=== PATIENT | male | born 2000 | race Caucasian/White ===

== ENCOUNTER 2022-03-03 16:10 | Emergency (ER) | payer BC, MEDICAID, SELFPAY ==
--- NOTE | 2022-03-03 16:13 | XRR_ITS ---
PROCEDURE INFORMATION: Exam: XR Right Ankle Exam date and time: 03/03/2022 4:59 PM Age: 21 years old Clinical indication: Pain and injury or trauma; Fall; Sprain or strain; Ankle; Right; Additional info: Injury/pain TECHNIQUE: Imaging protocol: XR Right ankle. Views: 3 or more views. COMPARISON: CR (LOW EXM, ) 03/03/2022 4:57 PM FINDINGS: Bones/joints: Osseous structures are intact. Negative for fracture. Joint spaces are preserved. Soft tissues: Mild soft tissue swelling along the lateral ankle. XR/XR ankle RT min 3V* [id number] IMPRESSION: No acute findings.
[2022-03-03 16:40] VITALS: BP 132/69; PULSE 86; RESP 18; TEMP 36.8; O2SAT 99; BMI 23.0
--- NOTE | 2022-03-03 16:46 | ED_ITS ---
HPI - Extremity Injury (Lower) General: Chief Complaint: Extremity Injury, Lower Stated Complaint: right ankle injury, swelling Time Seen by Provider: 03/03/22 16:21 Source: patient Mode of arrival: wheelchair Limitations: no limitations History of Present Illness: Patient is a 21-year-old male who presents to ED today for evaluation of a right ankle and foot injury. Patient states he was playing basketball and jumped up to get the ball and when he came down he landed on the ankle wrong. He states since then he has noticed swelling and increasing pain to the lateral aspect. MD complaint: ankle injury and foot injury Onset (ago): hour(s) Injury: Right: ankle and foot Place: other (basketball court) Severity: moderate Relieving factors: immobilization Exacerbating factors: weight bearing, movement and palpation Context: direct blow and other (twisting) Associated symptoms: Reports inability to bear weight Other symptoms: none Review of Systems Musc: Reports: extremity pain (R foot), extremity swelling (R foot), joint pain (R ankle) and joint swelling (R ankle) Neuro: Denies: numbness in extremities or sensory changes Physical Exam Const: COMMON NORMALS: no acute distress, average body habitus, patient oriented x3, no limitations, healthy appearing, alert and well nourished GENERAL APPEARANCE: cooperative Extremity: GENERAL: Yes normal exam except as noted RIGHT LOWER EXTREMITY: Yes foot & digits (TTP/swelling R lateral ankle) Right ankle: Yes neurovascular exam (normal) and Yes foot & digits (swelling/tenderness to lateral foot around 5th metatarsal base) Neuro: COMMON NORMALS: patient oriented x3, moves all extremities, no focal motor deficits and no sensory deficits noted SENSORIUM/ORIENTATION: Yes alert Skin: COMMON NORMALS: no rashes or lesions noted GENERAL SKIN EXAM: no rashes or lesions noted TRAUMA: no lacerations or abrasions Course Vital Signs: Vital signs: Vital Signs Temperature 98.3 F 03/03/22 16:40 Pulse Rate 86 03/03/22 16:40 Respiratory Rate 18 03/03/22 16:40 Blood Pressure 132/69 03/03/22 16:40 Pulse Oximetry 99 03/03/22 16:40 MDM - Extremity Injury (Lower) Medical Decision Making XRs negative. Given EM wrap/crutches. Weight bearing as tolerated. RICE therapy discussed. Follow up with PCP in 1-2 weeks for continued pain. Lab Data Radiology Impressions Foot X-Ray 03/03/22 16:51 IMPRESSION: No acute fracture. Soft tissue findings as above. Discharge Plan Discharge Patient Disposition: Home Clinical Impression: Right ankle sprain Qualifiers: Encounter type: initial encounter Involved ligament of ankle: unspecified ligament Qualified Code(s): S93.401A - Sprain of unspecified ligament of right ankle, initial encounter Condition: Stable Discharge Orders: Discharge ED (Routine); Ordered 03/03/22 Ordered By: Shonna Andrade Referrals: Shelly Barajas MD [Primary Care Provider] - Patient Instructions: Ankle Sprain (ED), RICE Therapy Coding Level of Care Code ED Renewable Energy Engineer for Chg Fwd Exam Expanded Problem Focused
--- NOTE | 2022-03-03 16:51 | XRR_ITS ---
PROCEDURE INFORMATION: Exam: XR Right Foot Exam date and time: 03/03/2022 4:57 PM Age: 21 years old Clinical indication: Injury or trauma; Fall; Sprain or strain; Foot; Right; Additional info: Trauma/injury TECHNIQUE: Imaging protocol: XR Right foot. Views: 3 or more views. COMPARISON: No relevant prior studies available. FINDINGS: Bones/joints: No acute fracture or dislocation. Well preserved joint spaces. Soft tissues: Probable soft tissue swelling at the medial midfoot and malleolar regions. Correlation with ankle exam may be helpful. Other findings: Three nonweightbearing views submitted. XR/XR foot RT min 3V* [id number] IMPRESSION: No acute fracture. Soft tissue findings as above.
== END 2022-03-03 17:50 | disposition home or self-care (01) ==
PROVIDERS: Emergency Provider Physician Assistant; PCP Pediatrics Adolescent Medicine
DX: S93.401A Sprain of unspecified ligament of right ankle, initial encounter (principal); X50.1XXA Overexertion from prolonged static or awkward postures, initial encounter; Y93.67 Activity, basketball
CPT/HCPCS: 73610; 73630; 99283; E0114

== ENCOUNTER 2024-07-03 09:31 | Emergency (ER) | payer SELFPAY ==
[2024-07-03 10:34] VITALS: BP 146/78; PULSE 58; RESP 18; TEMP 36.6; O2SAT 100
--- NOTE | 2024-07-03 10:42 | XRR_ITS ---
PROCEDURE INFORMATION: Exam: XR Right Ribs with PA Chest Exam date and time: 07/03/2024 10:51 AM Age: 24 years old Clinical indication: Injury or trauma; Other: Fall off roof; Rib area; Blunt trauma (contusions or hematomas) TECHNIQUE: Imaging protocol: Radiologic exam of the right ribs with PA chest. Views: 3 views COMPARISON: No relevant prior studies available. FINDINGS: Lungs: Lungs are clear. Pleural spaces: There is no pleural effusion or pneumothorax. Heart/Mediastinum: Cardiomediastinal contours are unremarkable. Bones/joints: Bones are unremarkable. No visible rib fracture. Nondisplaced rib fractures may be radiographically occult. XR/XR ribs RT mn 3V w CXR1V [id number] IMPRESSION: No acute findings.
--- NOTE | 2024-07-03 10:45 | ED_ITS ---
HPI - Fall 2 General: Chief Complaint: Fall Stated Complaint: fell off roof Time Seen by Provider: 07/03/24 10:43 History of Present Illness: 24-year-old male presents emergency room 4 days ago he fell off of a roof while working. He fell approximately 7 feet he had hit something on his right side. States it is extremely tender to take a deep breath is severe pain right lateral ribs. He also has quite a bit of abdominal pain denies any vomiting or diarrhea pain is worse with movement. No dysuria urgency or frequency or hematuria. He did not strike his head no loss consciousness denies any other injuries. Associated symptoms-after fall: Reports abdominal pain and chest pain; Denies neck pain Review of Systems 2 Const: Denies: fever(s) or chills Card: Reports: chest pain Resp: Denies: dyspnea GI: Reports: abdominal pain and nausea; Denies: vomiting, hematemesis or coffee ground emesis : Denies: dysuria, urinary frequency or urinary urgency Musc: Denies: neck pain or back pain Skin/Breast: Denies: rash Physical Exam 2 Const: COMMON NORMALS: no acute distress GENERAL APPEARANCE: cooperative and comfortable ORIENTATION/CONSCIOUSNESS: Yes awake, Yes oriented to person, Yes oriented to place and Yes oriented to time HENMT: COMMON NORMALS: normocephalic, atraumatic and hearing grossly normal bilaterally HEAD & SCALP: normocephalic and atraumatic Chest: OTHER: Reproducible pain with palpation of the right axillary line no subcu crepitus no deformity of the chest wall Resp: COMMON NORMALS: normal respiratory effort, No retractions, No use of accessory muscles and clear to auscultation bilaterally AUSCULTATION: clear to auscultation bilaterally Cardio: COMMON NORMALS: regular rate, regular rhythm and No murmurs present (Cardio) RATE: regular rate RHYTHM: regular rhythm GI: COMMON NORMALS: No hepatosplenomegaly present AUSCULTATION: Yes normoactive bowel sounds PALPATION: Yes Tenderness to palpation present (GI), Yes Guarding due to palpation present (GI) and Yes No hepatosplenomegaly present Extremity: COMMON NORMALS: normal to inspection, capillary refill normal, no clubbing, cyanosis or edema, no calf tenderness and no pedal edema Neuro: SENSORIUM/ORIENTATION: Yes oriented to person, Yes oriented to place and Yes oriented to time Skin: COMMON NORMALS: no rashes or lesions noted GENERAL SKIN EXAM: no rashes or lesions noted Course 2 Vital Signs: Vital signs: Vital Signs Temperature 97.8 F 07/03/24 13:37 Pulse Rate 54 L 07/03/24 13:37 Respiratory Rate 16 07/03/24 13:37 Blood Pressure 131/79 07/03/24 13:37 Pulse Oximetry 100 07/03/24 13:37 Oxygen Delivery Me thod Room Air 07/03/24 13:00 MDM - Fall Medical Decision Making Multiple acute fractures CT scan. Will treat pain no evidence of home hemopneumothorax. Medical Records I reviewed the patient's medical records. Lab Data I reviewed the patient's lab results. 07/03/24 11:00 07/03/24 11:00 Radiology Impressions Ribs X-Ray 07/03/24 10:42 IMPRESSION: No acute findings. Chest/Abdomen/Pelvis CT 07/03/24 10:53 IMPRESSION: 1. No sign of significant intrathoracic injury. 2. Acute nondisplaced fractures of the right anterolateral 6th through 11th ribs near the costal margin. IMPRESSION: 1. No sign of significant traumatic injury in the abdomen or pelvis. 2. Incomplete horseshoe kidney. No obstruction or stones. Details above. Laboratory Results WBC 7.98 10^3/uL (3.29-11.43) 07/03/24 11:00 RBC 5.15 10^6/uL (3.85-5.65) 07/03/24 11:00 Hgb 15.60 g/dL (11.27-16.99) 07/03/24 11:00 Hct 46.1 % (37-53) 07/03/24 11:00 MCV 89.5 fl (82-101) 07/03/24 11:00 MCH 30.3 pg (27-33) 07/03/24 11:00 MCHC 33.8 g/dL (30-55) 07/03/24 11:00 RDW 12.2 % (12.1-15.1) 07/03/24 11:00 Plt Count 289 10^3/cmm (157-399) 07/03/24 11:00 MPV 9.5 fL (7.4-10.4) 07/03/24 11:00 Neut % (Auto) 60.7 % 07/03/24 11:00 Lymph % (Auto) 29.2 % 07/03/24 11:00 [place] % (Auto) 7.0 % 07/03/24 11:00 Eos % (Auto) 2.5 % 07/03/24 11:00 Baso % (Auto) 0.3 % 07/03/24 11:00 Neut # (Auto) 4.85 10^3/uL (1.8-7.7) 07/03/24 11:00 Lymph # (Auto) 2.3 10^3/uL (0.8-4.8) 07/03/24 11:00 [place] # (Auto) 0.6 10^3/uL (0.2-0.9) 07/03/24 11:00 Eos # (Auto) 0.2 10^3/uL (0.0-0.8) 07/03/24 11:00 Baso # (Auto) 0.0 10^3/uL (0.0-0.1) 07/03/24 11:00 Nucleated RBC % (auto) 0 % 07/03/24 11:00 Nucleated RBCs # 0.0 /100WBC 07/03/24 11:00 Sodium 140 mmol/L (136-145) 07/03/24 11:00 Potassium 4.3 mmol/L (3.5-5.1) 07/03/24 11:00 Chloride 104 mmol/L (98-107) 07/03/24 11:00 Carbon Dioxide 25 mmol/L (22-29) 07/03/24 11:00 Anion Gap 15.3 (5-19) 07/03/24 11:00 BUN 10 mg/dL (6-20) 07/03/24 11:00 Creatinine 0.9 mg/dL (0.7-1.2) 07/03/24 11:00 GFR Calculation 105.5 mL/min (90-130) 07/03/24 11:00 Glucose 101 mg/dL (65-115) 07/03/24 11:00 Calculated Osmolality 289 mOsm/kg (285-295) 07/03/24 11:00 Calcium 9.2 mg/dL (8.5-10.5) 07/03/24 11:00 Total Bilirubin 0.2 mg/dL (0.15-1.2) 07/03/24 11:00 AST 11 U/L (0-40) 07/03/24 11:00 ALT 9 U/L (0-41) 07/03/24 11:00 Alkaline Phosphatase 84 U/L (40-130) 07/03/24 11:00 Total Protein 7.1 g/dL (6.6-8.7) 07/03/24 11:00 Albumin 4.4 g/dL (3.5-5.2) 07/03/24 11:00 Globulin 2.7 g/dL (1.3-4.6) 07/03/24 11:00 Lipase 23 U/L (13-60) 07/03/24 11:00 Urine Color Yellow (Yellow) 07/03/24 11:15 Urine Appearance Clear (CLEAR) 07/03/24 11:15 Urine pH 8.0 (5-7) A 07/03/24 11:15 Ur Specific [place] 1.015 (1.005-1.030) 07/03/24 11:15 Urine Protein Negative (Negative) 07/03/24 11:15 Urine Glucose (UA) Negative (Normal) 07/03/24 11:15 Urine Ketones Negative (Negative) 07/03/24 11:15 Urine Blood Negative (Negative) 07/03/24 11:15 Urine Nitrate Negative (Negative) 07/03/24 11:15 Urine Bilirubin Negative (Negative) 07/03/24 11:15 Urine Urobilinogen 0.2 mg/dL (Negative) 07/03/24 11:15 Ur Leukocyte Esterase Negative (Negative) 07/03/24 11:15 Urine RBC 0-2 /hpf (0-2) 07/03/24 11:15 Urine WBC 0-5 /hpf (0-5) 07/03/24 11:15 Ur Squamous Epith Cells 0-5 /hpf (0-5) 07/03/24 11:15 Amorphous Sediment Not Reportable 07/03/24 11:15 Urine Bacteria None seen /hpf (NONE) 07/03/24 11:15 Hyaline Casts 0-4 /lpf H 07/03/24 11:15 Blood Type A Positive 07/03/24 11:00 Rho(D) Type Rh positive 07/03/24 11:00 Antibody Screen Negative 07/03/24 11:00 All radiology interpretation(s) finalized by discharge Discharge Plan Discharge Patient Disposition: Home Clinical Impression: Multiple fractures of ribs Condition: Stable Prescriptions: New hydrocodone-acetaminophen 5-325 mg tablet 1 tab PO Q6H PRN (Reason: pain) Qty: 20 0RF No Action No Known Home Medications Discharge Orders: Discharge ED (Routine); Ordered 07/03/24 Ordered By: Vasquez Maloney Referrals: Shelly Barajas MD [Primary Care Provider] - Discharge Diet: Usual diet Discharge Activity: Increase activity as tolerated Patient Instructions: Opioid Safety, Pain Management, Fractures - Rib Activity Restrictions/Additional Instructions: Thank you for choosing [facility] for your healthcare needs today. It is very important that you follow up as instructed or that you return to the Emergency Department should you have concerns or if your condition changes or worsens in any way. Stand Alone Forms: Work/School Release Coding Level of Care Code ED Catia Designer for Bree Kaba
--- NOTE | 2024-07-03 10:53 | CTR_ITS ---
PROCEDURE INFORMATION: Exam: CT Chest With Contrast; Diagnostic Exam date and time: 07/03/2024 11:49 AM Age: 24 years old Clinical indication: Injury or trauma; Fall; Generalized; Blunt trauma (contusions or hematomas) TECHNIQUE: Imaging protocol: Diagnostic computed tomography of the chest with contrast. Radiation optimization: All CT scans at this facility use at least one of these dose optimization techniques: automated exposure control; mA and/or kV adjustment per patient size (includes targeted exams where dose is matched to clinical indication); or iterative reconstruction. Contrast material: OMNI 350; Contrast volume: 100 ml; Contrast route: INTRAVENOUS (IV); COMPARISON: CR XR ribs RT mn 3V w CXR1V [id number] 07/03/2024 10:51 AM RADIATION DOSE METRICS: Total DLP (mGy-cm): 844.18 FINDINGS: Lungs: Lungs are clear. Pleural spaces: There is no pleural effusion or pneumothorax. Heart: Heart size is normal. There is no pericardial effusion. Lymph nodes: There is no mediastinal or hilar lymphadenopathy. Vasculature: The aorta is unremarkable. There is no aneurysm. Visible portions of the pulmonary arteries are unremarkable. Bones/joints: There are acute nondisplaced fractures of the anterior lateral right 6th through 11th ribs near the costal margin. There is mild asymmetric edema in the soft tissues of the inferolateral right chest wall associated with rib fractures. Soft tissues: No significant soft tissue hematoma. PROCEDURE INFORMATION: Exam: CT Abdomen And Pelvis With Contrast Exam date and time: 07/03/2024 11:49 AM Age: 24 years old Clinical indication: Injury or trauma; Fall; Generalized; Blunt trauma (contusions or hematomas) TECHNIQUE: Imaging protocol: Computed tomography of the abdomen and pelvis with contrast. Radiation optimization: All CT scans at this facility use at least one of these dose optimization techniques: automated exposure control; mA and/or kV adjustment per patient size (includes targeted exams where dose is matched to clinical indication); or iterative reconstruction. Contrast material: OMNI 350; Contrast volume: 100 ml; Contrast route: INTRAVENOUS (IV); COMPARISON: CR XR ribs RT mn 3V w CXR1V [id number] 07/03/2024 10:51 AM RADIATION DOSE METRICS: Total DLP (mGy-cm): 844.18 FINDINGS: Liver: The liver is normal. Gallbladder and biliary ducts: The gallbladder is normal. There is no biliary dilation. Pancreas: The pancreas is unremarkable. Spleen: The spleen is unremarkable. Adrenal glands: The adrenal glands are unremarkable. Kidneys and ureters: Both kidneys are mildly morphologically abnormal. 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 There is a thin fibrous band connecting the lower poles of both kidneys across midline anterior to the aorta. Renal parenchymal enhancement is normal bilaterally. There is no hydronephrosis or stones. Stomach and bowel: The stomach is nondistended, limiting assessment of wall thickness. The small bowel is nondilated. There is mild sigmoid colonic diverticulosis without evidence of diverticulitis. Appendix: The appendix is normal. Intraperitoneal space: There is no free air or significant intraperitoneal free fluid. Vasculature: The aorta is unremarkable. There is no aneurysm. The portal, splenic and superior mesenteric veins are patent. Lymph nodes: There is no lymphadenopathy in the retroperitoneum, mesentery, pelvis or inguinal regions. Urinary bladder: The urinary bladder is unremarkable. Reproductive: The prostate and seminal vesicles are unremarkable. Bones/joints: The lumbar spine, pelvis and hips are unremarkable. Soft tissues: The abdominal wall is intact. CT/CT chest abdpel w/*[id number] IMPRESSION: 1. No sign of significant intrathoracic injury. 2. Acute nondisplaced fractures of the right anterolateral 6th through 11th ribs near the costal margin. IMPRESSION: 1. No sign of significant traumatic injury in the abdomen or pelvis. 2. Incomplete horseshoe kidney. No obstruction or stones. Details above.
[2024-07-03 11:16] LABS: Basophils % 0.3 %; Eosinophils # 0.2 10^3/uL (0.0-0.8); Eosinophils % 2.5 %; Hematocrit 46.1 % (37-53); Lymphocytes # 2.3 10^3/uL (0.8-4.8); Lymphocytes % 29.2 %; Mean Corpuscular HGB Conc 33.8 g/dL (30-55); Mean Corpuscular Hemoglobin 30.3 pg (27-33); Mean Corpuscular Volume 89.5 fl (82-101); Mean Platelet Volume 9.5 fL (7.4-10.4); Monocytes # 0.6 10^3/uL (0.2-0.9); Neutrophils # 4.85 10^3/uL (1.8-7.7); Neutrophils % 60.7 %; Nucleated Red Blood Cells % 0 %; Platelet Count 289 10^3/cmm (157-399); Red Blood Count 5.15 10^6/uL (3.85-5.65); Red Cell Distribution Width 12.2 % (12.1-15.1); White Blood Count 7.98 10^3/uL (3.29-11.43)
--- NOTE | 2024-07-03 11:18 | PC.NURSE ---
this nurse assumed pt care at 1105.
[2024-07-03 11:21] LABS: Charge for UA Resulting for Rev
[2024-07-03 11:27] LABS: Bilirubin Urine Negative (Negative); Blood Urine Negative (Negative); Glucose Urine UA Negative (Normal); Ketones Urine Negative (Negative); Leukocyte Esterase Urine Negative (Negative); Nitrate Urine Negative (Negative); Protein Urine Negative (Negative); Specific Gravity, Urine 1.015 (1.005-1.030); Urine Appearance Clear (CLEAR); Urine Color Yellow (Yellow); Urobilinogen Urine 0.2 mg/dL (Negative)
[2024-07-03 11:32] LABS: Bacteria Urine None Seen /hpf; Hyaline Casts Urine 0-4 /lpf; RBC Urine 0-2 /hpf (0-2); Squamous Epithelial Cell Urine 0-5 /hpf (0-5); WBC Urine 0-5 /hpf (0-5)
[2024-07-03 11:49] LABS: Alanine Aminotransferase 9 U/L (0-41); Albumin Level 4.4 g/dL (3.5-5.2); Alkaline Phosphatase 84 U/L (40-130); Anion Gap 15.3 (5-19); Aspartate Amino Transferase 11 U/L (0-40); Blood Urea Nitrogen 10 mg/dL (6-20); Calcium 9.2 mg/dL (8.5-10.5); Carbon Dioxide 25 mmol/L (22-29); Chloride 104 mmol/L (98-107); Globulin 2.7 g/dL (1.3-4.6); Glomerular Filtration Rate 105.5 mL/min (90-130); Glucose 101 mg/dL (65-115); Lipase 23 U/L (13-60); Osmolality Calculated 289 mOsm/kg (285-295); Potassium 4.3 mmol/L (3.5-5.1); Sodium 140 mmol/L (136-145); Total Bilirubin 0.2 mg/dL (0.15-1.2); Total Protein 7.1 g/dL (6.6-8.7)
[2024-07-03] MEDS: iohexol 350 mg/mL 500 mL Btl (per mL) IV (11:52)
[2024-07-03 13:00] VITALS: BP 138/81; PULSE 56; RESP 16; O2SAT 99
[2024-07-03 13:37] VITALS: BP 131/79; PULSE 54; RESP 16; TEMP 36.6; O2SAT 100
== END 2024-07-03 13:36 | disposition home or self-care (01) ==
PROVIDERS: Emergency Provider Family Medicine; PCP Pediatrics Adolescent Medicine
DX: S22.41XA Multiple fractures of ribs, right side, initial encounter for closed fracture (principal); W13.2XXA Fall from, out of or through roof, initial encounter
CPT/HCPCS: 36415; 71101; 71260; 74177; 80053; 81003; 81015; 83690; 85025; 86850; 86900; 99285; Q9967

== ENCOUNTER → 2024-08-12 15:13 | Outpatient (BNVA) | payer SELFPAY | PROVIDERS: PCP Pediatrics Adolescent Medicine; Visit Provider Nurse Practitioner Family | DX: R50.9 Fever, unspecified (principal) | CPT/HCPCS: 87400; 87426 ==

== ENCOUNTER → 2024-08-24 08:36 | Outpatient (BNVA) | payer SELFPAY | PROVIDERS: PCP Pediatrics Adolescent Medicine; Visit Provider Nurse Practitioner Family | DX: S99.921A Unspecified injury of right foot, initial encounter (principal); W20.8XXA Other cause of strike by thrown, projected or falling object, initial encounter | CPT/HCPCS: 73630 ==

== ENCOUNTER 2025-04-11 11:46 | Emergency (ER) | payer SELFPAY ==
[2025-04-11 11:49] VITALS: BP 143/84; PULSE 74; RESP 17; TEMP 36.7; O2SAT 100; BMI 25.8
--- NOTE | 2025-04-11 12:34 | W.ED.DENTAL ---
HPI - Dental/Oral General: Chief complaint: Dental/Oral Stated complaint: tooth pain Time Seen by Provider: 04/11/25 12:30 Source: patient Mode of arrival: ambulatory Limitations: no limitations History of Present Illness: 24-year-old male states he has had pain in the left lower wisdom tooth states he broke it 3 days ago has been having increasing pain he rates a 6 out of 10 states he has a dentist appointment next week but is having hard time sleeping due to the pain denies any fever denies any trismus. Denies any difficulty swallowing Associated symptoms: Denies fever(s) Related Data Previous Rx's ?Medication ?Instructions ?Recorded cephalexin 500 mg capsule 500 mg PO TID 7 days #21 caps 04/11/25 hydrocodone 5 mg-acetaminophen 325 1 tab PO Q6H PRN pain #8 tabs 04/11/25 mg tablet Allergies Allergy/AdvReac Type Severity Reaction Status Date / Time No Known Allergies Allergy Verified 08/12/24 15:03 Review of Systems Const: Denies: fever(s), chills, body aches or change in appetite ENMT: Reports: dental pain; Denies: throat pain Card: Denies: chest pain Resp: Denies: dyspnea GI: Denies: abdominal pain, nausea, vomiting or diarrhea Musc: Denies: neck pain or back pain Skin/Breast: Denies: rash Neuro: Denies: headache(s) PFSH ED PFSH: Social History Smoking and tobacco/nicotine status: unknown if used tobacco/nicotine Physical Exam Const: COMMON NORMALS: no acute distress, patient oriented x3 and healthy appearing HENMT: COMMON NORMALS: normocephalic and atraumatic HEAD & SCALP: normocephalic and atraumatic OTHER: Tenderness over tooth #17 no abscess or trismus Eye: COMMON NORMALS: conjunctivae normal CONJUNCTIVA: Yes conjunctivae normal Neck/C-Spine: COMMON NORMALS: full ROM and supple Chest: COMMONS NORMALS: normal inspection of the chest Resp: COMMON NORMALS: normal respiratory effort Cardio: COMMON NORMALS: regular rate RATE: regular rate Extremity: COMMON NORMALS: normal to inspection and full ROM Neuro: COMMON NORMALS: patient oriented x3, moves all extremities and no focal motor deficits Psych: COMMON NORMALS: mental status grossly normal, Normal thought process present and cooperative THOUGHT PROCESS: Normal thought process present Skin: COMMON NORMALS: no rashes or lesions noted and no wounds GENERAL SKIN EXAM: no rashes or lesions noted Course Vital Signs: Vital signs: Vital Signs Temperature 98.1 F 04/11/25 11:49 Pulse Rate 74 04/11/25 11:49 Respiratory Rate 17 04/11/25 11:49 Blood Pressure 143/84 04/11/25 11:49 Pulse Oximetry 100 04/11/25 11:49 Oxygen Delivery Me thod Room Air 04/11/25 11:49 MDM - Dental/Oral Medical Decision Making Patient presents here with dental pain no signs of abscess or trismus we will start antibiotics patient's follow-up PCP return if worsening. Medical Records I reviewed the patient's medical records. No radiology studies performed this visit Discharge Plan Discharge Patient Disposition: Home Clinical Impression: Toothache Condition: Stable Prescriptions: New hydrocodone-acetaminophen 5-325 mg tablet 1 tab PO Q6H PRN (Reason: pain) Qty: 8 0RF cephalexin 500 mg capsule 500 mg PO TID 7 Days Qty: 21 0RF Discharge Orders: Discharge ED (Routine); Ordered 04/11/25 Ordered By: Lyn Mcwilliams Referrals: Shelly Barajas MD [Primary Care Provider, Pediatrics] Discharge Diet: Advance as tolerated Discharge Activity: Limit activity as instructed Patient Instructions: Toothache (ED) Print Language: Yakut Coding Level of Care Code ED Science Specialist for Bree Kaba
[2025-04-11 12:46] VITALS: BP 138/74; PULSE 70; O2SAT 100
[2025-04-11] MEDS: cephALEXin 500 mg Capsule PO (12:46)
[2025-04-11] MEDS: HYDROcodone-acetaminophen 5-325 mg Tablet 1 TAB PO (12:46)
== END 2025-04-11 12:48 | disposition home or self-care (01) ==
PROVIDERS: Emergency Provider Emergency Medicine; PCP Pediatrics Adolescent Medicine
DX: K08.89 Other specified disorders of teeth and supporting structures (principal)
CPT/HCPCS: 99283; J9999